=== PATIENT | female | born 1965 | race Caucasian/White ===

== ENCOUNTER 2016-10-11 07:20 | Emergency (ER) | payer OTHER, BC ==
[~2016-10-11] VITALS: Ht 170.2 cm; Wt 134.3 kg
[~2016-10-11 07:20] MED LIST: ALBU8.5H INH; ALPR0.5T PO; ATOR20TA59 PO; CYCL-375 PO; FLUT1DIS3 ORAL INH; FURO-153 PO; HYDR-4009 PO; HYDR25TA PO; METF10002 PO; NAPR500T3 PO; POTA20TA87 PO; PREG50CA PO; SENN-156 PO; SULF1TAB42 PO; TRAZ-173 PO
[2016-10-11 07:21] VITALS: TEMP 98.7; Ht 170.2 cm; Wt 134.3 kg
--- OUTSIDE RECORDS SUMMARY | 2016-10-11 07:26 | XMS REPORT | Continuity of Care Document ---
Demographics Preferred Language Unknown Marital Status Unknown Caodaism Affiliation Unknown Race Unknown Ethnic Group Unknown Author Author [facility] Organization [facility] Address Unknown Phone Unavailable Allergies Medications Problems Procedures Results Encounters ACCT No. Visit Date/Time Discharge Status Pt. Type Provider Facility Loc./Unit Complaint [id number] 09/29/2013 08:16:00 ACT Unknown
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
[2016-10-11] MEDS ORDERED: LORAZEPAM 1 MG TABLET PO PRN (07:30)
--- NOTE | 2016-10-11 07:30 | NUR ---
PHYSICIAN VISIT DR. HUGGINS IN TO SEE PATIENT.
--- NOTE | 2016-10-11 07:37 | NUR ---
CT SCAN TRANSPORTED TO CT VIA STRETCHER PER WATER LEAK REPAIRER AND THIS NURSE.
--- NOTE | 2016-10-11 07:43 | NUR ---
RETURNED RETURNED FROM CT.
--- OUTSIDE RECORDS SUMMARY | 2016-10-11 07:45 | XMS REPORT | Continuity of Care Document ---
Demographics Preferred Language Unknown Marital Status Unknown Buddhism Affiliation Unknown Race Unknown Ethnic Group Unknown Author Author [facility] Organization [facility] Address Unknown Phone Unavailable Allergies Medications Problems Procedures Results Encounters ACCT No. Visit Date/Time Discharge Status Pt. Type Provider Facility Loc./Unit Complaint [id number] 09/29/2013 08:16:00 ACT Unknown
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
--- NOTE | 2016-10-11 08:10 | NUR ---
C-COLLAR C-SPINE CLEARED. C-COLLAR REMOVED.
--- NOTE | 2016-10-11 08:16 | NUR ---
X-RAY TRANSPORTED TO X-RAY VIA WHEELCHAIR PER X-RAY TECH.
[2016-10-11 08:24] LABS: BLOOD, URINE NEGATIVE (NEGATIVE); COLOR,URINE YELLOW (YELLOW); LEUKOCYTE ESTERASE ,URINE 1+ (NEGATIVE); NITRITE,URINE NEGATIVE (NEGATIVE); UROBILINOGEN,URINE 0.2 EU/DL (NORMAL)
--- NOTE | 2016-10-11 08:33 | NUR ---
RETURNED RETURNED FROM X-RAY.
[2016-10-11 08:35] LABS: BACTERIA,URINE TRACE (NEGATIVE); RBC,URINE NONE SEEN /HPF (0-3); SQUAMOUS EPITHELIAL CELL,UR 0-5
[2016-10-11 08:44] LABS: BASOPHILS % (AUTO) 0.3 % (0-2); EOSINOPHILS # (AUTO) 0.1 T/MM3 (0-0.5); EOSINOPHILS % (AUTO) 1.4 % (0-4); HCT - HEMATOCRIT 38.7 % (36-46); HGB - HEMOGLOBIN 13.1 GM/DL (12-16); IMMATURE GRANULOCYTE # (AUTO) 0.02 T/MM3 (0.00-0.03); IMMATURE GRANULOCYTE % (AUTO) 0.3 % (0.0-0.5); LYMPHOCYTES # (AUTO) 1.4 T/MM3 (1-4.8); LYMPHOCYTES % (AUTO) 21.1 % (23-45); MEAN CORPUSCULAR HGB CONC(MCHC 33.9 GM/DL (31-37); MEAN CORPUSCULAR VOLUME 85.8 UM3 (80-100); MEAN PLATELET VOLUME 9.2 UM3 (9.4-12.4); MONOCYTES # (AUTO) 0.3 T/MM3 (0-0.8); MONOCYTES % (AUTO) 3.9 % (0-9.0); NEUTROPHILS #(AUTO)-ABSOLUTE 4.7 T/MM3 (1.8-7.7); RED BLOOD COUNT 4.51 M/MM3 (4.00-5.20); WBC - WHITE BLOOD COUNT 6.5 T/MM3 (4.5-11.0)
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
[2016-10-11 08:53] LABS: ALBUMIN 4.7 G/DL (3.5-5.0); ALBUMIN/GLOBULIN RATIO 1.8 RATIO (1.1-2.2); ALKALINE PHOSPHATASE 136 U/L (38-126); ALT (SGPT) 33 U/L (9-52); ANION GAP 17 MEQ/L (5-15); AST (SGOT) 23 U/L (14-36); BUN/CREATININE RATIO 24 RATIO (6-26); CALCIUM 9.9 MG/DL (8.4-10.2); CHLORIDE 100 MEQ/L (98-107); CO2 - CARBON DIOXIDE 29 MEQ/L (22-30); CREATININE 0.9 MG/DL (0.7-1.2); GLOMERULAR FILTRATION RATE 66; GLUCOSE 143 MG/DL (65-110); POTASSIUM 3.4 MEQ/L (3.6-5); SODIUM 146 MEQ/L (134-144); TOTAL PROTEIN 7.3 G/DL (6.3-8.2)
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
[2016-10-11] MEDS ORDERED: METH-310 PO (09:09)
[2016-10-11 09:30] VITALS: BP 132/59; PULSE 94; RESP 16; O2SAT 95
== END 2016-10-11 09:32 | disposition home or self-care (01) ==
LOC: ED 07:20
DX: M54.2 Cervicalgia (principal); M25.512 Pain in left shoulder; M25.552 Pain in left hip; V48.0XXA Car driver injured in noncollision transport accident in nontraffic accident, initial encounter; Y93.89 Activity, other specified; Y92.410 Unspecified street and highway as the place of occurrence of the external cause; Y99.8 Other external cause status
CPT/HCPCS: 36415; 80053; 81001; 85025